=== PATIENT | male | born 1975 | race African-American/Black ===

== ENCOUNTER 2017-01-31 10:23 | Emergency (ER) | payer BC, OTHER ==
[~2017-01-31] VITALS: Ht 170.2 cm; Wt 63.5 kg
--- NOTE | 2017-01-31 12:07 | NUR ---
Patient discharged to home in stable conditon. Written and verbal after care instructions given. Patient verbalizes understanding of instructions.
== END 2017-01-31 12:08 | disposition home or self-care (01) ==
LOC: ER 10:25
DX: H00.014 Hordeolum externum left upper eyelid (principal)
CPT/HCPCS: 99283; A4663